=== PATIENT | female | born 1985 | race Caucasian/White ===

== ENCOUNTER → 2017-10-28 18:50 | Outpatient (REF) | payer OTHER, SELFPAY | LOC: LAB 18:50 | PROVIDERS: Visit Provider Family Medicine | DX: Z34.93 Encounter for supervision of normal pregnancy, unspecified, third trimester (principal) | CPT/HCPCS: 87081; 87147 ==

== ENCOUNTER 2017-11-03 06:57 | Observation (INO) | payer OTHER, SELFPAY ==
[2017-11-03] MEDS: TERBUTALINE 1 MG/ML VIAL 0.25 MG SUBCUT (07:44)
--- NOTE | 2017-11-03 08:17 | PM.PROC.1 ---
Procedures Date/Time Date of procedure: 11/03/17 Time of procedure: 07:44 General Procedure description: Patient arrived on Labor and delivery 1st baby at 37 weeks with breech presentation. NST was reactive. Ultrasound done confirmed infant with the head in the right upper quadrant back across the top of her uterus. There was adequate fluid. Anterior placenta. An IV was started. She was given terbutaline subcutaneously. Attempt x3 for 15 sec each time with monitoring heart rate in between was unsuccessful at moving the baby. NST was performed afterwards and was reactive. Patient denies any pain, bleeding. Complications: none
== END 2017-11-03 09:28 | disposition home or self-care (01) ==
PROVIDERS: Admitting Provider Family Medicine; PCP Family Medicine; Visit Provider Family Medicine
DX: O32.1XX0 Maternal care for breech presentation, not applicable or unspecified (principal); Z3A.37 37 weeks gestation of pregnancy
CPT/HCPCS: 59025; 59050; 59412; 76815; 96372; G0378; G0379

== ENCOUNTER 2017-11-17 05:36 | Inpatient (IN) | payer OTHER, SELFPAY ==
[2017-11-17] VITALS (7 sets, daily range): BP systolic 106–121; BP diastolic 74–81; PULSE 63–76; RESP 10–18; TEMP 36.1; O2SAT 96–100
--- NOTE | 2017-11-17 06:39 | PM.OBHP.1 ---
OB HPI Date/Time Date of admission: 11/17/17 Date Patient Seen: 11/17/17 Time Patient Seen: 06:39 History of Present Condition Chief complaint: [id number] : 1 Para: 0 Estimated Date of Delivery: 11/23/17 Estimated Gestational Age (weeks): 39 Narrative: EVELIA VELAZCO is a 32 year old female at 39 and 1 7 week intrauterine with breech presentation. Patient at 39 weeks had attempted version which failed. Brought in today for section. Patient had uncomplicated . Has been treated for reflux with Zantac but has done well. No other changes. Good movement. No leaking fluid. No contractions. Past medical history reflux History of elevated transaminases Past surgical history previous knee operations right x2. Social history. Lives with . Denies drug or alcohol use. Indications Indication for induction OB: other Operative indications ( section): breech presentation History of Present care: good care Dating criteria: LMP confirmed by 1st trimester US Ultrasounds: normal mid trimester US Obstetrical complications: none Narrative: Reflux Preadmission Labs Blood type: A (-) negative -: Antibody screen: negative, GBS status: negative, HBsAG: negative, HIV: negative, HSV 1: negative, HSV 2: negative and RPR/VDLR: negative -: Chlamydia screen: not detected and Gonorrhea screen: not detected -: Rubella: immune and Varicella: immune HCT: 13.4 HCAB: negative PAP: Normal Integrated screen: Normal Urine: Negative 1 hr GTT: 127 Prior (ies) History: None Evaluation Evaluation Category of Tracing: I Meds Allergies Allergy/AdvReac Type Severity Reaction Status Date / Time No Known Drug Allergies Allergy Verified 11/03/17 07:42 Review of Systems Review of Systems All systems reviewed & are unremarkable except as noted in HPI and below Exam Vital Signs (past 8 hours): Alert female smiling interactive in no acute distress. Lungs are clear. Heart regular rate and rhythm. Abdomen is gravid nontender. Confirmed breech with ultrasound. His extremities without cyanosis clubbing or edema. Normal neurologic exam Assessment and Plan Plan: Plan: Thirty-nine weeks gestational age intrauterine with breech presentation failed version. We have discussed options. Patient requesting section. Will do today. His rediscussed process and plan. Consent has already been discussed and approved. Signed. Follow-up in operating room
--- NOTE | 2017-11-17 06:50 | PM.PREOP ---
Pre-operative Note Interval Note Pre-op Check: Yes History & Physical exam performed today by Physician Changes: No H&P completed within 30 days and has changed as indicated here:: none
[2017-11-17 07:33] LABS: Add Manual Diff / Slide Review NO; Basophils Percent Auto 0.6 % (0-2); Eosinophils Percent Auto 0.5 % (2-4); Hematocrit 39.3 % (36-46); Hemoglobin 13.3 g/dL (12.0-16.0); Lymphocytes Percent Auto 25.6 % (25-40); Mean Corpuscular HGB Conc 33.9 % (30-36); Mean Corpuscular Hemoglobin 30.4 PG (26-34); Mean Corpuscular Volume 89.6 fL (80-100); Monocytes Percent Auto 5.9 % (3-14); Neutrophils Absolute Auto 7400 /uL (3000-5900); Neutrophils Percent Auto 67.4 % (50-75); Platelet Count 339 X10^3/uL (150-400); Red Blood Cell Count 4.38 X10^6/uL (4.0-5.2); Red Cell Distribution Width 13.6 % (11.6-14.8); White Blood Cell Count 10.9 X10^3/uL (4.5-11.0)
[2017-11-17] MEDS: CEFOTETAN 2 GM/50 ML PIGGYBACK IV (08:05)
--- NOTE | 2017-11-17 08:09 | SUR.OPER ---
Supine on Padded OR bed, head on pillow, safety belt at thigh, arms secured on padded arm boards at <90 degrees abduction. Bump under right buttock. Legs uncrossed with pillow under knees, gel pad to heels, tape over blanket to lower legs.
[2017-11-17] MEDS: LACTATED RINGERS 1,000 ML 42 ML IV ×2 (08:32→09:01)
--- NOTE | 2017-11-17 08:35 | SUR.OPER ---
FHT 140 AFTER SPINAL PLACED, VIABLE BABY GIRL BORN AT 0821
--- NOTE | 2017-11-17 09:08 | PM.OP.1 ---
Operative Date/Time/Diagnoses Date of procedure: 11/17/17 Time of procedure: 09:08 Pre-op diagnosis: Thirty-nine week intrauterine , failed version breech presentation Post-op diagnosis: same Procedure & Clinicians Procedure: primary low transverse section Same procedure as scheduled: Yes Indications: 39 week intrauterine with attempted version at 37 weeks which failed. Continued breech presentation Surgeon: Pj Corona Want Ad Receiver: Johanna Cool Click Yes if Unassisted: No Anesthesia Type: Spinal Operative Notes Findings: viable female infant Apgars 6 in 8. Weight not available. Breech presentation. Normal pelvic organs Closure Type: primary Specimen(s): none sent Implants & Drains: none Applied: catheter Estimated Blood Loss (mL): 400 Procedure in detail: patient was reviewed consent and her understand questions were answered she was taken the operative theater and scopes protocol was followed. Placed on the operative table in the wedge supine position after spinal was placed. Prepped and draped in the usual manner. Pfannenstiel incision was then and scribe in the usual location with sharp dissection down in the midline to fascia. Blunt dissection was then used to extend the subcutaneous and expose the fascia. Midline was then scored with scalpel and extended laterally with curved scissors. Molly is a used to grasp the superior aspect of the fascia and was bluntly dissected off the muscle layer. sharply dissected in the midline. This was repeated inferiorly without complications. Blunt dissection was then used to excise separate the muscle layer down to the peritoneum which was identified. Hemostats were used to isolate the peritoneum and blunt dissection was used to enter it was extended with blunt dissection bladder blade was placed bladder flap was then incised and developed without complications bladder blade was placed and the bladder flap. A low transverse incision was then made on the uterus until clear fluid was obtained this was extended bluntly the feet were then grasped and brought through the incision and then a towel was applied to the child's torso and delivered 1st the right arm than the left arm. Head was difficult to extract was unable to get hand into mouth briefly attempted to T incision but was unable to really extensively get good exposure and eventually head was delivered after mild difficulty. handed off to awaiting nurse and respiratory therapist minimal resuscitation was required. Cord gases were obtained and were excellent. Placenta was then manually extracted after cord bloods without complications. wet lap sponge was then used to swipe the uterine contents x2. Linda the uterine incision was then grasped with ring forceps along with the inferior aspect of the incision ring forceps were passed through the cervix and handed off the operative theater. Uterine incision was then closed with running 0 locked chromic. A 2nd imbricating stitch was then done with running 0 chromic. Irrigation was done to the uterine contents revaluated wound small area on the left side of bleeding [id number] suture was placed without complications and excellent results. Re-evaluated wound no bleeding noted 3 0 suture was then used to close the bladder flap and a running stitch fashion. Peritoneum was then closed with running 2 0 Vicryl. Fascia was then closed with running 1 Vicryl. Irrigation was done to the subcutaneous tissue. 330 interrupted Vicryl sutures were used to approximate the wound and close space H and subcutaneous tissue. Closed with running 4 0 Vicryl. All instruments sponge and needle counts were correct usual dressing applied. Four hundred EBL. Mother and infant in stable condition. Complications: none Condition: stable Disposition: Acute Care Plan for aftercare: Routine care postop to Labor and delivery
[2017-11-17] MEDS: KETOROLAC 30 MG/ML VIAL IV ×3 (09:13→21:35)
[2017-11-17] MEDS: DEXTROSE 5%-LACTATED RINGERS 1,000 ML 125 ML IV ×2 (10:15→18:02)
[2017-11-18] MEDS: KETOROLAC 30 MG/ML VIAL IV (06:17)
[2017-11-18] MEDS: OXYCODONE/ACETAMINOPHEN 5/325 TABLET 1 TAB PO ×2 (06:17→16:23)
[2017-11-18 06:36] LABS: Hematocrit 36.9 % (36-46); Hemoglobin 12.2 g/dL (12.0-16.0)
--- NOTE | 2017-11-18 08:57 | PM.OBPN.1 ---
Subjective - OB Interval history: Feeling well. Minimal pain. Minimal bleeding. No other changes. Up and moving. Gonzalez discontinued today. Patient comments: pain well controlled and incisional pain baby status: doing well feeding status: exclusively breast feeding Date Patient Seen: 11/18/17 Time Patient Seen: 08:58 Exam Vital Signs (past 8 hours): Oxygen Delivery Method Room Air Narrative Exam Narrative: Alert smiling female in no acute distress. Lungs are clear. Heart regular rate and rhythm. Abdomen is soft positive bowel sounds fundus is firm at umbilicus. Minimally tender. Incision is clean and dry. Extremities without cyanosis clubbing edema. Objective Labs Result Diagrams: 11/18/17 06:21 Labs: Laboratory Results - last 24 hr 11/18/17 06:21 Hgb 12.2 Hct 36.9 Assessment & Plan Plan day: 1 plan OB: routine postop care Comments: day 1 doing well no other significant changes or complaints. Routine care. Probable tomorrow. Routine post care discussed. Time Spent With Patient Total time spent is greater than 50% in coordination of care (as documented) at patient's floor/unit and/or counseling patient: less than 15 minutes
[2017-11-18] MEDS: DOCUSATE 250 MG CAPSULE PO (12:07)
[2017-11-18] MEDS: IBUPROFEN 600 MG TABLET PO ×2 (12:07→18:34)
[2017-11-19] MEDS: IBUPROFEN 600 MG TABLET PO ×2 (00:31→08:00)
[2017-11-19] MEDS: OXYCODONE/ACETAMINOPHEN 5/325 TABLET 2 TAB PO ×3 (05:04→12:56)
[2017-11-19] MEDS: DOCUSATE 250 MG CAPSULE PO (08:00)
--- NOTE | 2017-11-19 12:27 | PM.OBDS.1 ---
Discharge Providers Date of admission: 11/17/17 05:36 Primary care physician: Johanna Cool MD Consults: 11/17/17 09:54 Consult to Cork Pressing Machine Operator Routine Comment: Discharge provider: Johanna Cool MD Summary Date Patient Seen: 11/19/17 Time Patient Seen: 12:29 Hospital Course: Patient had a primary low transverse section for persistent breech presentation at term. Unremarkable . The There were no complications Patient is sent home with routine discharge instructions Discharge medications Colace, Percocet, Motrin, vitamins Follow-up with ia Wednesday Peripartum Data Delivery Method: Section Procedures: primary low transverse section complications: none Status at Discharge Cognitive/behavioral status at discharge: normal Functional status at discharge: independent ambulation Overall status at discharge: patient is progressing back to baseline Time Spent with Patient Total time spent providing and/or coordinating discharge services: 30 minutes Greater than 30 minutes Objective Labs Result Diagrams: 11/18/17 06:21 Discharge Plan Discharge Plan Patient Disposition: Home Discharge Med Rec/Prescriptions Prescriptions: New oxycodone-acetaminophen 5-325 mg Tablet 2 tab PO Q4HR PRN (Reason: Pain, Severe (7-10)) Qty: 40 RF: 0 ibuprofen 600 mg Tablet 600 mg PO Q6HR PRN (Reason: As Needed For Fever/Mild Pain) Qty: 60 RF: 0 docusate sodium 250 mg Capsule 250 mg PO DAILY Qty: 60 RF: 0 No Action No Known Home Medications RF: 0 Follow up/Referrals: Johanna Cool MD [Primary Care Provider] - 11/22/17 1:00 pm Provider Discharge Instructions Diet: Diet as Tolerated Activity: Pelvic rest, no heavy lifting Skin/Wound/Dressing Care Report to your healthcare provider any signs of infection, such as:: chills, fever, night sweats, increased pain and unusual drainage Visit Report/Discharge Packet Stand Alone Forms: Discharge: Care Visit Report Forms: Stroke Signs & Symptoms Discharge Data Primary Care Provider: Johanna Cool Attending Provider: Pj Corona Admit Date/Time: 11/17/17 05:36
[2017-11-19 12:29] VITALS: BP 121/77; PULSE 70; RESP 12; TEMP 36.1
== END 2017-11-19 13:30 | disposition home or self-care (01) | DRG 766 ==
PROVIDERS: Admitting Provider Family Medicine; Family Provider Family Medicine; PCP Family Medicine; Visit Provider Family Medicine
PROC: 10D00Z1 Extraction of Products of Conception, Low, Open Approach (ICD-10-PCS; CPT 59514; principal; 2017-11-17 07:45)
DX: O32.1XX0 Maternal care for breech presentation, not applicable or unspecified (principal); Z3A.39 39 weeks gestation of pregnancy; Z37.0 Single live birth
CPT/HCPCS: 36415; 59050; 85014; 85018; 85025; 86850; 86900; 86901; J1885; J2274; J2405; J2590; J3010; J7121

== ENCOUNTER → 2018-10-31 09:37 | Outpatient (CLI) | payer OTHER, SELFPAY ==
--- NOTE | 2018-10-31 | DI.US.S_ITS ---
PROCEDURE: US OB <= 14 WEEKS FETUS INDICATIONS: INITIAL SIZING AND DATING OUTSIDE/PRIOR DATING DATA: Last menstrual period (LMP): 09/27/18. LMP-based estimated date of delivery (DEANGELO): 06/12/19. First dating scan (date and location): 10/31/18. Estimated date of delivery (DEANGELO) from first dating scan: 06/20/19. TECHNIQUE: Real-time scanning was performed of the fetus and maternal pelvic organs, with image documentation. Endovaginal scanning was also performed to better visualize the fetus and maternal ovaries. COMPARISON: None. FINDINGS: Embryo: [place]-rump length measures 9 mm corresponding to 6 weeks 6 days. Heart rate measures 135 beats per minute. Measurement variability in dating: +/- 4 weeks by LMP, +/- 7 days by mean sac diameter (use before 6 weeks gestation if crown-rump length not able to be measured), +/- 5 days by crown-rump length (up to 8 weeks 6 days gestation), +/- 7 days by crown-rump length (up to 13 weeks 6 days gestation). Maternal organs: Right ovaries not visualized. Normal left ovary. No adnexal masses. IMPRESSION: 6 week 6 day single living IUP. Dictated by: Scooby Hughes RRA Interpreted: Esmer Martin MD on 10/31/2018 at 14:06 Approved by: Esmer Martin MD, PhD on 10/31/2018 at 15:16
== END ==
PROVIDERS: PCP Family Medicine; Visit Provider Family Medicine
DX: Z34.91 Encounter for supervision of normal pregnancy, unspecified, first trimester (principal); Z3A.01 Less than 8 weeks gestation of pregnancy
CPT/HCPCS: 76801; 76817

== ENCOUNTER → 2019-05-15 10:41 | Outpatient (CLI) | payer OTHER, SELFPAY ==
--- NOTE | 2019-05-15 | DI.US.S_ITS ---
PROCEDURE: US OB LIMITED INDICATIONS: LLQ PAIN OUTSIDE/PRIOR DATING DATA: Last menstrual period (LMP): 09/27/18. LMP-based estimated date of delivery (DEANGELO): 06/12/19. First dating scan (date and location): 10/31/18. Estimated date of delivery (DEANGELO) from first dating scan: 06/20/19.. TECHNIQUE: Real-time scanning was performed of the fetus, with image documentation. Endovaginal scanning: No COMPARISON: [facility], OB <= 14 WEEKS FETUS, 10/31/2018, 10:19. FINDINGS: A single living intrauterine gestation is present. Presentation: Vertex Placenta: Placental position is anterior, without previa. Amniotic fluid index: 22.9 cm, normal range is 5-24 cm. heart rate: 133 beats per minute. Maternal cervical canal: Not well-seen Estimated gestational age from initial scan: 34 weeks 6 days. IMPRESSION: 1. Single living IUP redemonstrated and no source for left lower quadrant pain identified. Of note, the left ovary is not visualized. Dictated by: Scooby Hughes [facility] Interpreted: Hanane Nicolas MD on 05/15/2019 at 12:49 Approved by: Hanane Nicolas M.D. on 05/15/2019 at 14:16
== END ==
PROVIDERS: PCP Family Medicine; Referring Provider Family Medicine; Visit Provider Family Medicine
DX: O99.89 Other specified diseases and conditions complicating pregnancy, childbirth and the puerperium (principal); R10.32 Left lower quadrant pain; Z3A.34 34 weeks gestation of pregnancy
CPT/HCPCS: 76815

== ENCOUNTER 2019-05-17 13:22 | Outpatient (CLI) | payer OTHER, SELFPAY | END 2019-05-17 14:57 | disposition home or self-care (01) | LOC: LABOR 14:57 → OB 05-18 09:00 | PROVIDERS: PCP Family Medicine; Referring Provider Family Medicine; Visit Provider Family Medicine | DX: Z34.83 Encounter for supervision of other normal pregnancy, third trimester (principal); Z3A.35 35 weeks gestation of pregnancy | CPT/HCPCS: 59025; G0378; G0379 ==

== ENCOUNTER → 2019-05-31 12:17 | Outpatient (ROUT) | payer OTHER, SELFPAY | PROVIDERS: PCP Family Medicine; Visit Provider Family Medicine | DX: Z34.90 Encounter for supervision of normal pregnancy, unspecified, unspecified trimester (principal) | CPT/HCPCS: 87081 ==

== ENCOUNTER 2019-06-14 08:34 | Inpatient (IN) | payer OTHER, SELFPAY ==
[2019-06-14 09:45] LABS: Add Manual Diff / Slide Review NO; Basophils Absolute Auto 0 /uL (0-100); Basophils Percent Auto 0.4 % (0-2); Eosinophils Absolute Auto 100 /uL (0-450); Eosinophils Percent Auto 0.4 % (2-4); Hematocrit 37.8 % (36-46); Hemoglobin 12.7 g/dL (12.0-16.0); Lymphocytes Absolute Auto 2600 /uL (1100-4500); Mean Corpuscular HGB Conc 33.6 % (30-36); Mean Corpuscular Hemoglobin 29.5 PG (26-34); Mean Corpuscular Volume 88.1 fL (80-100); Monocytes Absolute Auto 600 /uL (0-900); Monocytes Percent Auto 4.8 % (3-14); Neutrophils Absolute Auto 9100 /uL (1500-7000); Neutrophils Percent Auto 73.4 % (50-75); Platelet Count 331 X10^3/uL (150-400); Red Blood Cell Count 4.29 X10^6/uL (4.0-5.2); Red Cell Distribution Width 13.8 % (11.6-14.8); White Blood Cell Count 12.3 X10^3/uL (4.5-11.0)
--- NOTE | 2019-06-14 09:51 | P.HPOB_ITS ---
OB HPI Date/Time Date of admission: 06/14/19 Date Patient Seen: 06/14/19 Time Patient Seen: 09:51 History of Present Condition Chief complaint: [id number] : 2 Para: 1 Estimated Date of Delivery: 06/20/19 Estimated Gestational Age (weeks): 391/7 Narrative: Dolly Karimi is a 33 year old female 39 and 1/7 week gestational age here for repeat section. Really no complications during . Otherwise healthy with no major issues. No complaints. No contractions. No leaking fluids. Otherwise feeling well. Indications Operative indications ( section): previous uterine surgery History of Present care: good care Dating criteria: LMP confirmed by 1st trimester US Ultrasounds: normal mid trimester US Obstetrical complications: none Medical complications: none Preadmission Labs Blood type: A (-) negative -: Antibody screen: negative, Cystic fibrosis screen: unknown, GBS status: negative, HBsAG: negative, HIV: negative, HSV 1: negative, HSV 2: negative and RPR/VDLR: negative -: Chlamydia screen: not detected and Gonorrhea screen: not detected -: Rubella: immune and Varicella: unknown HCAB: negative PAP: Normal Quad screen: Normal 1 hr GTT: 111 Prior (ies) History: 11/17/17 39 week spinal 7 lb 6 oz male Evaluation Evaluation Laboratory results: Laboratory Tests 06/14/19 09:00 WBC 12.3 H RBC 4.29 Hgb 12.7 Hct 37.8 MCV 88.1 MCH 29.5 MCHC 33.6 RDW 13.8 Plt Count 331 Neut % (Auto) 73.4 Lymph % (Auto) 21.0 L [place] % (Auto) 4.8 Eos % (Auto) 0.4 L Baso % (Auto) 0.4 Neut # (Auto) 9100 H Lymph # (Auto) 2600 [place] # (Auto) 600 Eos # (Auto) 100 Baso # (Auto) 0 PFSH Social History Smoking Status: Never smoker Meds Home Medications and Allergies Home Medications Medication Instructions Recorded Confirmed Type No Known Home Medications 11/17/17 11/17/17 History docusate sodium 250 mg PO DAILY #60 cap 11/19/17 Rx ibuprofen 600 mg PO Q6HR PRN #60 tab 11/19/17 Rx oxycodone-acetaminophen 2 tab PO Q4HR PRN #40 tab 11/19/17 Rx Allergies Allergy/AdvReac Type Severity Reaction Status Date / Time No Known Drug Allergies Allergy Verified 11/03/17 07:42 Review of Systems Review of Systems ROS: Yes All systems reviewed with the patient and are negative except as otherwise documented Exam Vital Signs (past 8 hours): Alert female lying in bed no acute distress. Lungs are clear. Heart regular rate and rhythm. She is gravid breech with spine lying along the left side. Head upper right quadrant. Nontender. Extremities unremarkable Objective Labs Result Diagrams: 06/14/19 09:00 Labs: Laboratory Results - last 24 hr 06/14/19 09:00 WBC 12.3 H RBC 4.29 Hgb 12.7 Hct 37.8 MCV 88.1 MCH 29.5 MCHC 33.6 RDW 13.8 Plt Count 331 Neut % (Auto) 73.4 Lymph % (Auto) 21.0 L [place] % (Auto) 4.8 Eos % (Auto) 0.4 L Baso % (Auto) 0.4 Neut # (Auto) 9100 H Lymph # (Auto) 2600 [place] # (Auto) 600 Eos # (Auto) 100 Baso # (Auto) 0 Assessment and Plan Assessment and Plan Assessment and Plan narrative: 39+ week intrauterine with breech presentation otherwise doing well. Here for . Consents been signed discussion with mom and dad. Questions answered. Will proceed.
[2019-06-14] MEDS: CEFOTETAN 2 GM/50 ML PIGGYBACK IV (10:40)
[2019-06-14] MEDS: ACETAMINOPHEN IV 1,000 MG/100 ML VIAL 400 MG IV (10:45)
[2019-06-14] MEDS: LACTATED RINGERS 1,000 ML 42 ML IV (10:57)
--- NOTE | 2019-06-14 11:15 | SUR.OPER ---
VIABLE MALE INFANT DELIVERED AT 1105. PLACENTA AND CORD BLOOD TO OB WITH RN.
--- NOTE | 2019-06-14 12:08 | P.OP_ITS ---
Operative Date/Time/Diagnoses Date of procedure: 06/14/19 Time of procedure: 12:08 Pre-op diagnosis: Term uterine History of previous section Post-op diagnosis: same Procedure & Clinicians Procedure: Secondary low-transverse section Same procedure as scheduled: Yes Surgeon: Pj Corona Inspector Wire Products: Johanna Cool Click Yes if Unassisted: No Anesthesia Type: Spinal Operative Notes Findings: Breech presentation. Normal male Apgars 9 and 9. Normal pelvic organs. Due to breech T incision was done on uterus Closure Type: primary Specimen(s): none sent Applied: catheter Estimated Blood Loss (mL): 500 Blood products transfused: none Procedure in detail: Patient was met in the labor and delivery and questions were answered. Says consented been previously signed and she understands. Questions were answered again. Her were comfortable. Was brought to the operating theatre and sat on the operating table and Dr. Mcmanus anesthesiologists placed spinal without complications excellent results. She was placed in the wedged supine position and catheter was placed ICDs were placed SOAPes procedure was followed. Prepped and draped in the usual manner. Pfannenstiel incision was then undertaken under sharp dissection with moderate amount of scar tissue down to the fascia. Fascia was then scored in the midline and extended laterally with curved scissors. Levon was then used to elevate the fascia it was bluntly dissected except in the midline were sharp dissection was used. This was repeated inferiorly without complications. Moderate amount of [place] to shins in the midline with her noted and under direct visualization using curved scissors slowly taken down until midline was identified. And peritoneum was identified. Once a small area was cleared 1 dissection was then used to extend the incision. There was small amount of scar tissue inferiorly which was taken down without complications. Bladder flap was then incised and bladder blade was placed in the bladder flap. A low transverse incision was then made on the uterus until clear fluid was noted and this was extended laterally. Child was then delivered breech with no complications until head was obtained at this point we are having difficulty getting head removed and a T incision was done with bandage scissors. This allowed adequate room and child was delivered. No resuscitation was required. Cord was clamped and sent to awaiting nurse. Cord bloods were obtained. Placenta was then delivered without complications. Wet lap sponge was then used to swipe the uterine contents for products of conception. None were found. This was repeated. Ring forceps were used then to grass the corners incision in the inferior aspect and bladder blade was placed. The T part of the incision was then closed from the apex to the incision with double layer of 0 chromic. Came together nicely. No bleeding. We then closed the uterine incision with locked 0 chromic running. This was repeated with an imbricating suture. Nose bleeding was noted there was a small amount of bleeding on the apex of the T incision and a [id number] was placed. Then that part of the incision was then imbricated. No bleeding was noted. We then irrigated the abdominal contents with saline and removed it. Re-evaluated incision was found to be dry. Bladder flap was then closed all except the left corner which was difficult to find due to tearing period and previous scarring. Peritoneum was then closed with running 2 0 Vicryl. Muscle layer was then approximated with 2 3-0 interrupted Vicryl sutures. Fascia was then closed with running 1 Vicryl. Irrigation was done to the subcutaneous tissue and removed. No bleeding was noted. 330 Vicryl interrupted sutures were used to approximate the wound skin was closed with running 4-0 Vicryl subcutaneous 5th. EBL was 500 cc. Mother and infant were in stable condition. Transferred to recovery period Complications: none Post-operative Condition: stable Plan for aftercare: To labor and delivery unusual care
[2019-06-14 12:12] VITALS: BP 123/76; PULSE 82; RESP 11; TEMP 36.2; O2SAT 99
[2019-06-14 12:17] VITALS: BP 94/66; PULSE 91; RESP 18; O2SAT 100
[2019-06-14 12:22] VITALS: BP 109/55; PULSE 76; RESP 13; O2SAT 99
[2019-06-14] MEDS: KETOROLAC 30 MG/ML VIAL IV ×2 (12:24→18:25)
--- NOTE | 2019-06-14 12:30 | SUR.PHASEI ---
Report called to Miguelina.
--- NOTE | 2019-06-14 12:57 | SUR.PHASEI ---
Patient transferred to the center. Report given to Miguelina. VS stable. Dressing, pad and fundus checked with RN. IV saline locked.
--- NOTE | 2019-06-14 13:00 | SUR.PHASEI ---
Addendum: viktor chavarria.
[2019-06-14] MEDS: LACTATED RINGERS 1,000 ML 125 ML IV ×2 (13:29→21:01)
[2019-06-14 14:13] VITALS: BP 110/71
[2019-06-15] MEDS: KETOROLAC 30 MG/ML VIAL IV ×2 (00:18→06:14)
[2019-06-15] MEDS: DOCUSATE 250 MG CAPSULE PO (08:29)
[2019-06-15] MEDS: ACETAMINOPHEN 325 MG TABLET 650 MG PO ×3 (08:58→21:10)
[2019-06-15] MEDS: IBUPROFEN 600 MG TABLET PO ×2 (13:14→19:59)
--- NOTE | 2019-06-15 13:33 | PM.OBPN.1 ---
Subjective - OB Subjective Patient comments: incisional pain baby status: doing well feeding status: exclusively breast feeding Date Patient Seen: 06/15/19 Time Patient Seen: 13:34 Interval history: Patient doing well today. Does not want to use narcotics. Taking Tylenol ibuprofen. Toradol finished last dose already. Minimal lochia. No nausea or vomiting. Tolerating food well. Passing gas. Exam Vital Signs (past 8 hours): Oxygen Delivery Method Room Air Narrative Exam Narrative: Alert smiling female no acute distress. Lungs are clear. Heart regular rate and rhythm. Abdomen is mildly distended. Normal bowel sounds. Uterus is firm. Incision is clean and dry. Extremities no edema nontender Objective Labs Result Diagrams: 06/14/19 09:00 Assessment & Plan Plan Comments: Overall doing extremely well. No change in treatment course. Probable home tomorrow. Time Spent With Patient Time: Total time spent is greater than 50% in coordination of care (as documented) at patient's floor/unit and/or counseling patient: Time with patient: 15-24 minutes
[2019-06-15] MEDS: RHO(D) IMMUNE GLOBULIN 1,500 UNIT SYRINGE 1500 UNIT IM (20:00)
[2019-06-16] MEDS: IBUPROFEN 600 MG TABLET PO ×2 (02:06→08:12)
[2019-06-16] MEDS: ACETAMINOPHEN 325 MG TABLET 650 MG PO (02:55)
[2019-06-16] MEDS: DOCUSATE 250 MG CAPSULE PO (08:12)
--- NOTE | 2019-06-16 08:36 | P.DS_ITS ---
Discharge Providers Provider Date of admission: 06/14/19 08:34 Discharge Date: 06/16/19 Primary care physician: Johanna Cool MD Consults: 06/14/19 12:57 Consult to Licensed Physical Therapist Routine Comment: Discharge provider: Johanna Cool MD Summary Time Spent with Patient Time attestation: Total time spent providing and/or coordinating discharge services: Objective Labs Result Diagrams: 06/14/19 09:00 Exam Vital Signs (past 8 hours): Oxygen Delivery Method Room Air Narrative Exam Narrative: Afebrile vital signs are stable HEENT unremarkable Neck: Supple Chest: Clear to auscultation Cor: Regular rate and rhythm without murmur Abdomen: Uterus is firm and nontender and well below the umbilicus. Incision is clean and dry Extremities: No edema, pulses intact Discharge Plan Discharge Plan Patient Disposition: Home Discharge orders & Medications Prescriptions: Continued ibuprofen 600 mg Tablet 600 mg PO Q6HR PRN (Reason: As Needed For Fever/Mild Pain) Qty: 60 RF: 0 Discontinued oxycodone-acetaminophen 5-325 mg Tablet 2 tab PO Q4HR PRN (Reason: Pain, Severe (7-10)) Qty: 40 RF: 0 docusate sodium 250 mg Capsule 250 mg PO DAILY Qty: 60 RF: 0 Follow up/Referrals: Johanna Cool MD [Primary Care Provider] - Diet/Activity/Treatments Diet: Diet as Tolerated Activity: Pelvic rest No heavy lifting Skin/Wound/Dressing Care Skin care: Routine incision instructions given Discharge Data Primary Care Provider: Johanna Cool
[2019-06-16 08:44] LABS: Add Manual Diff / Slide Review NO; Basophils Absolute Auto 100 /uL (0-100); Basophils Percent Auto 0.7 % (0-2); Eosinophils Absolute Auto 300 /uL (0-450); Eosinophils Percent Auto 2.4 % (2-4); Hematocrit 33.7 % (36-46); Hemoglobin 11.3 g/dL (12.0-16.0); Lymphocytes Absolute Auto 2400 /uL (1100-4500); Lymphocytes Percent Auto 17.4 % (25-40); Mean Corpuscular HGB Conc 33.6 % (30-36); Mean Corpuscular Hemoglobin 29.9 PG (26-34); Mean Corpuscular Volume 88.8 fL (80-100); Monocytes Absolute Auto 600 /uL (0-900); Monocytes Percent Auto 4.3 % (3-14); Neutrophils Absolute Auto 10200 /uL (1500-7000); Neutrophils Percent Auto 75.2 % (50-75); Platelet Count 322 X10^3/uL (150-400); Red Cell Distribution Width 14.3 % (11.6-14.8); White Blood Cell Count 13.6 X10^3/uL (4.5-11.0)
== END 2019-06-16 10:15 | disposition home or self-care (01) | DRG 788 ==
PROVIDERS: Admitting Provider Family Medicine; PCP Family Medicine; Referring Provider Family Medicine; Visit Provider Family Medicine
PROC: 10D00Z1 Extraction of Products of Conception, Low, Open Approach (ICD-10-PCS; CPT 59514; principal; 2019-06-14 10:00)
DX: O34.219 Maternal care for unspecified type scar from previous cesarean delivery (principal); Z3A.39 39 weeks gestation of pregnancy; Z37.0 Single live birth
CPT/HCPCS: 36415; 59050; 85025; 85461; 86850; 86900; 86901; J0131; J1885; J2274; J2590; J2790

== ENCOUNTER → 2019-10-19 10:38 | Outpatient (CLI) | payer OTHER, SELFPAY ==
--- NOTE | 2019-10-19 | DI.US.S_ITS ---
PROCEDURE: US ABDOMEN COMPLETE INDICATIONS: RIGHT UPPER QUADRANT PAIN TECHNIQUE: Real-time scanning was performed of the abdominal and retroperitoneal organs, with image documentation. COMPARISON: None. FINDINGS: Liver: The liver demonstrates normal size. The liver demonstrates generalized increased echogenicity. This decreases ultrasound sensitivity for detection of hepatic masses. Gallbladder: Mobile, shadowing gallstones are seen. The gallbladder wall is not thickened, measuring 3 mm or less. No specific pericholecystic fluid is seen. The sonographic Combs sign is negative. Biliary ducts: Intrahepatic bile ducts are non-dilated. Extrahepatic bile duct caliber measures 4 mm. Normal is 6-7 mm or less in diameter, or 10 mm or less post-cholecystectomy. Pancreas: Visualized portions of the pancreas are sonographically normal. Spleen: Spleen is normal in size and homogeneous in echotexture. Kidneys: Kidneys are normal in size and echotexture. Right kidney measures 11.3 cm long; left kidney measures 10.3 cm long. No hydronephrosis or nephrolithiasis. No solid masses. Aorta: Visualized aorta is normal in caliber at less than 3 cm. Iliacs: Proximal common iliac arteries are normal in caliber at less than 2.5 cm. IVC: Intrahepatic inferior vena cava is patent. Miscellaneous: No free abdominal fluid. IMPRESSION: Mobile gallstones are seen, yet without additional sonographic signs of cholecystitis. Negative for biliary dilatation. Please correlate with physical examination findings, patient presentation, and laboratory values. The liver demonstrates increased echogenicity. This finding is nonspecific, yet it is most commonly attributed to fatty infiltration. Dictated by: Lukasz Vazquez M.D. on 10/19/2019 at 10:43 Approved by: Lukasz Vazquez M.D. on 10/19/2019 at 10:44
== END ==
PROVIDERS: PCP Family Medicine; Referring Provider Family Medicine; Visit Provider Family Medicine
DX: R10.11 Right upper quadrant pain (principal); K80.20 Calculus of gallbladder without cholecystitis without obstruction
CPT/HCPCS: 76700

== ENCOUNTER → 2019-11-26 11:17 | Outpatient (CLI) | payer OTHER, SELFPAY ==
[2019-11-27 13:56] LABS: COVID19 Sendout Not Detected (Not Detect)
== END ==
PROVIDERS: PCP Family Medicine; Visit Provider Nurse Practitioner
DX: Z11.59 Encounter for screening for other viral diseases (principal)
CPT/HCPCS: 87635

== ENCOUNTER 2019-11-29 11:15 | Day surgery (SDC) | payer OTHER, SELFPAY ==
[2019-11-23 15:01] VITALS: BMI 34.9
[2019-11-29] VITALS (11 sets, daily range): BP systolic 108–134; BP diastolic 61–82; PULSE 64–94; RESP 13–23; TEMP 36.3–36.5; O2SAT 93–99; BMI 34.9
--- NOTE | 2019-11-29 | PATH_ITS ---
[facility] Accession Number: [id number] . 01 Material submitted: . gallbladder - GALLBLADDER AND CONTENTS . 02 Diagnosis: Gallbladder and Contents, Cholecystectomy: Chronic cholecystitis, cholesterolosis, and cholelithiasis. MRV 12/01/2019 1001 Local . 02 Electronically signed: . Erica Garcia MD, Pathologist NPI- [id number] . 01 Gross description: . Received in formalin, labeled gallbladder, and consists of an 8.0 x 2.0 x 2.0 cm intact gallbladder with a 0.2 cm in diameter cystic duct. The serosa is pink-purple and smooth. Opening reveals green viscous bile and multiple agudelo-green bosselated choleliths ranging from 0.1 to 0.3 cm and measuring 1.0 x 1.0 x 0.3 cm in aggregate. The mucosa is agudelo-green and velvety and the wall thickness measures up to 0.2 cm. Bleacher Operator sections are submitted to include the en face cystic duct margin (green), body and fundus in cassette A1. (EA:[id number]) /MRV 11/30/2019 1453 Local . 02 Pathologist provided ICD-10: K80.20, K80.60 . 02 CPT . 783856 Performed at: 01 [facility] [address], [place], [place] [id number] MD Jerardo Loco MD Phone: [phone] Performed at: 02 [facility] [address] [place], [place] [id number] MD Shahnaz Davis MD Phone: [phone]
[2019-11-29] MEDS: LACTATED RINGERS 1,000 ML 100 ML IV (11:34)
[2019-11-29] MEDS: Non-Formulary Medication (Indocyanine 25 MG) 25 EACH IV (12:08)
--- NOTE | 2019-11-29 12:08 | PM.PREOP ---
Pre-operative Note COVID-19 COVID-19 status: Negative Result date/Date tested (Pos, Neg/Pending): 11/26/19 Interval Note History & Physical reviewed/Exam performed by Physician: Yes Changes to H&P: No
[2019-11-29] MEDS: PIPERACILLIN-TAZO 3.375 GM/50 ML FROZ.PIGGY IV (12:15)
--- NOTE | 2019-11-29 12:56 | SUR.OPER ---
Supine on padded OR bed, head on pillow, arms secured on padded arm boards at <90 degrees abduction, legs uncrossed, safety belt at thigh, tape over blanket over lower legs.
[2019-11-29] MEDS: BUPIVACAINE 0.25% W/ EPI 30 ML VIAL INJ (13:41)
--- NOTE | 2019-11-29 14:00 | PM.OP.1 ---
Operative Date/Time/Diagnoses Date of procedure: 11/29/19 Time of procedure: 14:00 Pre-op diagnosis: Symptomatic cholelithiasis Post-op diagnosis: other (symptomatic cholelithiasis chronic cholecystitis) Procedure & Clinicians Procedure: Laparoscopic cholecystectomy with indocyanine green cholangiography Same procedure as scheduled: Yes Indications: Symptomatic cholelithiasis Surgeon: Molly Merida Click Yes if Unassisted: Yes Anesthesia Type: General Operative Notes Findings: Gallbladder was thickened and deeply intrahepatic, with small stones in the infundibulum, heavy liver which made retraction of the gallbladder difficult, indocyanine green was helpful for indicating cystic duct position and common duct Specimen(s): other (Gallbladder) Estimated Blood Loss (mL): 1 Blood products transfused: none Procedure in detail: The patient was brought into the operating room and placed supine on the OR table. Sequential compression devices were placed on both legs and turned on. Appropriate perioperative antibiotics were given prior to the start of surgery. General anesthesia was induced the patient was intubated. The abdomen was prepped and draped in sterile fashion. Surgical time-out was conducted. Local anesthetic was injected under the skin just superior to the umbilicus and a 5 mm vertical incision was made at this site. The umbilical stalk was grasped with a Levon and elevated. A Veress needle was passed through the fascia into proper position. The position was tested with a saline drop test which was appropriate for intra-abdominal Veress needle placement. The abdomen was then insufflated in the usual fashion. Once insufflated to 15 mm Hg the Veress needle was removed and a 5 mm optical trocar was placed under direct vision using a 5 mm 30 degree scope. Once the camera was inside the abdomen I took a look around. There was no injury from port placement. Two additional ports were placed in a similar fashion in the right upper quadrant and a 10 mm port was placed in the epigastrium. Through the 2 lateral ports the gallbladder was grasped and elevated and the infundibulum was retracted laterally to the patient's right. The gall bladder was deeply intrahepatic and the liver was very heavy. The falciform did not provide any upward lift on the liver. This made positioning the gall bladder for safe dissection difficult. There was a moderate amount of dense scar tissue throughout the gallbladder hilum. This required tedious careful dissection to avoid injury to the bile ducts. Indocyanine green cholangiography was used to identify the cytic duct and common duct, and to help guide dissection, avoiding injury to either duct. As the fibrous scar tissue was dissected out, we were gradually able to get a better view of the hilum for dissection of the critical view of safety. Once the cystic duct and artery were completely dissected out, I was able to see liver behind and between both structures without any other structures in the way, giving us the critical view. At this point I doubly clipped both structures on the patient's side and put a single clip on the gallbladder side of both the cystic duct and artery. Both structures were then divided with laparoscopic Herbert. Following this the gallbladder was gradually dissected free from the liver. The deeply intrahepatic position of the gall bladder made this a more difficult and prolonged dissection. Once the gallbladder was entirely freed, it was placed inside an Endo-Catch bag and removed through the epigastric port site. I did not have to enlarge the epigastric site in order to get the gallbladder out. Once it was out and passed off to the back table I then took another look inside the abdomen. I suctioned clean any remaining blood or fluid on the lateral side of the liver and in the subhepatic space. There was no active bleeding or leaking of bile from the gallbladder fossa or from the clipped stumps of the cystic duct and artery. At this point the insufflation was removed from the abdomen and the epigastric port site was closed with 0 Vicryl suture in the fascia, 3 O Vicryl in the subcutaneous layers, and 4 Monocryl in the skin. The remaining port sites were closed with 4 Monocryl in the skin. Each port site was sealed with Dermabond. Local anesthetic was given at each of the port sites and in the fascia. This concluded the procedure. At this point the needle sponge and instrument counts were correct. The gallbladder was passed off the table for pathology. Patient was awakened from anesthesia and extubated. She was transferred to the postanesthesia care unit in stable condition. Complications: none Post-operative Condition: stable Disposition: PACU
[2019-11-29] MEDS: fentaNYL 100 MCG/2 ML INJ IV ×2 (14:16→14:40)
[2019-11-29] MEDS: HYDROCODONE/ACET 5/325 TABLET 1 TAB PO ×2 (14:22→15:14)
--- NOTE | 2019-11-29 15:38 | SUR.PHASEII ---
Pt dcd in stable condition to curbside where waiting in his car. No c/o and pt states verbalizes understanding of all dc instructions and will p/u rxs
== END 2019-11-29 15:38 | disposition home or self-care (01) ==
PROVIDERS: PCP Family Medicine; Referring Provider Surgery; Visit Provider Surgery
PROC: 0FT44ZZ Resection of Gallbladder, Percutaneous Endoscopic Approach (ICD-10-PCS; CPT 47562; principal; 2019-11-29 12:45)
DX: K80.10 Calculus of gallbladder with chronic cholecystitis without obstruction (principal); E66.9 Obesity, unspecified; Z68.35 Body mass index [BMI] 35.0-35.9, adult
CPT/HCPCS: 47563; J1100; J1885; J2250; J2405; J2543; J2704; J3010

== ENCOUNTER → 2020-10-23 16:09 | Outpatient (CLI) | payer OTHER, SELFPAY ==
--- NOTE | 2020-10-23 16:13 | DI.US.S_ITS ---
PROCEDURE: US OB <= 14 WEEKS FETUS INDICATIONS: LOW HEART RATE OUTSIDE/PRIOR DATING DATA: Last menstrual period (LMP): Unknown. IVF-based estimated date of delivery (DEANGELO): 05/11/2021. First dating scan (date and location): 10/23/2020. Estimated date of delivery (DEANGELO) from first dating scan: 05/08/2020. TECHNIQUE: Real-time scanning was performed of the fetus and maternal pelvic organs, with image documentation. Endovaginal scanning was also performed to better visualize the fetus and maternal ovaries. COMPARISON: [facility], , OB <= 14 WEEKS FETUS, 10/31/2018, 10:19. FINDINGS: Embryo: Single live intrauterine is identified with crown-rump length measuring 5.2 cm corresponding to 11 weeks 6 days. No visualized subchorionic hemorrhage. Cervix measures 3.9 cm. Heart rate: 153 beats per minute. Maternal organs: Ovaries are unremarkable . IMPRESSION: 1. Single live intrauterine as above with ultrasound gestational age of 11 weeks 6 days. 2. It is noted IVF DEANGELO of 05/11/2021. Dictated by: Hanane Nicolas M.D. on 10/24/2020 at 8:33 Approved by: Hanane Nicolas M.D. on 10/24/2020 at 8:36
== END ==
PROVIDERS: PCP Family Medicine; Referring Provider Family Medicine; Visit Provider Family Medicine
DX: O36.8310 Maternal care for abnormalities of the fetal heart rate or rhythm, first trimester, not applicable or unspecified (principal); Z3A.11 11 weeks gestation of pregnancy
CPT/HCPCS: 76801; 76817

== ENCOUNTER → 2020-12-25 09:14 | Outpatient (CLI) | payer OTHER, SELFPAY ==
--- NOTE | 2020-12-25 | DI.US.S_ITS ---
PROCEDURE: US OB >= 14 WEEKS FETUS INDICATIONS: 20 WEEK ANATOMY SCAN OUTSIDE/PRIOR DATING DATA: Last menstrual period (LMP): unknown LMP-based estimated date of delivery (DEANGELO): 05/11/21 First dating scan (date and location): 10/23/20 . Estimated date of delivery (DEANGELO) from first dating scan: 05/08/21 . TECHNIQUE: Real-time scanning was performed of the fetus, with image documentation and biometric measurements. COMPARISON: [facility], OB <= 14 WEEKS FETUS, 10/23/2020, 15:57. FINDINGS: General: A single living intrauterine gestation is present. Presentation: Breech. Placenta: Placental position is anterior, without previa. Amniotic fluid index: 15.3 cm, normal range is 5-24 cm. heart rate: 149 beats per minute. Maternal cervical canal: 3.9 cm long. Normal lower limit is 2.5 cm. biometrics: Biparietal diameter: 4.9 cm 20 weeks 6 days Head circumference: 18.6 cm 21 weeks 0 days Abdominal circumference: 16 cm 21 weeks 1 day Femur length: 3.2 cm 19 weeks 6 days Estimated gestational age from initial scan: 20 weeks 6 days Composite gestational age from present scan: 20 weeks 5 days Estimated weight and percentile: 367g 33rd percentile Measurement variability for biometric dating: +/- 7 days from 14 weeks to 15 weeks 6 days gestation, +/- 10 days from 16 weeks to 21 weeks 6 days gestation, +/- 2 weeks from 22 weeks to 27 weeks 6 days gestation, +/- 3 weeks for 28 weeks gestation or later. weight reference: 4500 g or EFW >90/95% is considered macrosomia or large for gestational age. EFW <10% is small for gestational age. EFW 5% or less is considered intra-uterine growth restriction. Anatomic survey: Neuro: Not well seen. Nuchal skin fold: Normal at less than 6 mm between 14-21 weeks gestational age. Face: Nose and lips, facial profile are not well seen. Spine: Not well seen. Heart: 4-chambered heart and ventricular outflow tracts are not well seen. Diaphragm: Diaphragm is not well seen. Stomach: Left-sided stomach is unremarkable. Kidneys: Right kidney is not well seen. Left kidney is unremarkable. Cord: 3-vessel cord is not well seen. Bladder: Normal in size. Extremities: Right upper and left lower limbs are not well seen. Other limbs are not well seen. IMPRESSION: 1. Single live intrauterine as above. 2. Very limited anatomy. Recommend short interval followup. Dictated by: Hanane Nicolas M.D. on 12/25/2020 at 16:35 Approved by: Hanane Nicolas M.D. on 12/25/2020 at 16:47
== END ==
PROVIDERS: PCP Family Medicine; Referring Provider Family Medicine; Visit Provider Family Medicine
DX: Z34.82 Encounter for supervision of other normal pregnancy, second trimester (principal); Z3A.20 20 weeks gestation of pregnancy
CPT/HCPCS: 76811

== ENCOUNTER → 2021-01-03 11:01 | Outpatient (CLI) | payer OTHER, SELFPAY ==
--- NOTE | 2021-01-03 | DI.US.S_ITS ---
PROCEDURE: US OB FOLLOW UP INDICATIONS: FOLLOW UP TO 20 WEEK OUTSIDE/PRIOR DATING DATA: Last menstrual period (LMP): Unknown . LMP-based estimated date of delivery (DEANGELO): 05/11/21 (IVF) First dating scan (date and location): 10/23/20 Estimated date of delivery (DEAGNELO) from first dating scan: 05/08/21 TECHNIQUE: Real-time scanning was performed of the fetus, with image documentation and biometric measurements. Endovaginal scanning: Not performed COMPARISON: [facility], OB >= 14 WEEKS FETUS, 12/25/2020, 9:40. [facility], OB <= 14 WEEKS FETUS, 10/23/2020, 15:57. FINDINGS: General: A single living intrauterine gestation is present. Presentation: Variable. Placenta: Placental position is anterior , without previa. Amniotic fluid index: 11.4 cm, normal range is 5-24 cm. heart rate: 145 beats per minute. Maternal cervical canal: 4.3 cm long. Normal lower limit is 2.5 cm. Estimated gestational age from initial scan: 22 weeks 1 day Other: Suboptimal evaluation secondary to body habitus however grossly normal appearance of the spine, four-chamber heart, outflow tracts, chest/diaphragm, three-vessel cord, urinary bladder and extremities. Ventricles and posterior fossa grossly unremarkable. The face/lips are not well seen. IMPRESSION: Single living intrauterine fetus Suboptimal evaluation as above. face/lips still not well visualized, otherwise the remaining anatomic survey completed. Recommend follow-up Possible marginal placenta previa. Recommend follow-up. Dictated by: Jeffry Olmstead M.D. on 01/03/2021 at 15:20 Approved by: Jeffry Olmstead M.D. on 01/03/2021 at 15:31
== END ==
PROVIDERS: PCP Family Medicine; Referring Provider Family Medicine; Visit Provider Family Medicine
DX: Z36.2 Encounter for other antenatal screening follow-up (principal); Z3A.22 22 weeks gestation of pregnancy
CPT/HCPCS: 76816

== ENCOUNTER → 2021-01-20 09:59 | Outpatient (CLI) | payer OTHER, SELFPAY ==
[2021-01-20 12:06] LABS: Hematocrit 37.4 % (36-46); Hemoglobin 12.7 g/dL (12.0-16.0)
[2021-01-20 13:14] LABS: GTT (PREG) 1 Hour PP 50gm Dose 129 mg/dL (76-139)
== END ==
PROVIDERS: PCP Family Medicine; Referring Provider Obstetrics & Gynecology; Visit Provider Obstetrics & Gynecology
DX: Z34.82 Encounter for supervision of other normal pregnancy, second trimester (principal); Z3A.25 25 weeks gestation of pregnancy
CPT/HCPCS: 36415; 82950; 85014; 85018; 86850

== ENCOUNTER 2021-03-28 07:41 | Observation (INO) | payer OTHER, SELFPAY ==
--- NOTE | 2021-03-28 | DI.US.S_ITS ---
PROCEDURE: US OB BIOPHYSICAL PROFILE INDICATIONS: BLEEDING. RULE OUT PLACENTAL ABRUPTION. OUTSIDE/PRIOR DATING DATA: First dating scan (date and location): October 23, 2020; [facility]. Estimated date of delivery (DEANGELO) from first dating scan: May 08, 2021. TECHNIQUE: Real-time scanning was performed of the fetus for biophysical profile, with image documentation. COMPARISON: [facility], US, US OB >= 14 WEEKS FETUS, 02/18/2021, 14:06. FINDINGS: General: A single living intrauterine gestation is present. Presentation: Vertex. Placenta: Placental position is anterior , without previa. Amniotic fluid index: 19.6 cm, normal range is 5-24 cm. Single deepest vertical pocket is 5.4 cm. heart rate: 128 beats per minute. Maternal cervical canal: 3.6 cm long. Normal lower limit is 2.5 cm. Biophysical profile: Tone: 2 points. Movement: 2 points. Respiration: 2 points. Largest pocket of fluid: 2 points. IMPRESSION: 1. Single intrauterine gestation as detailed above. 2. 09/29 biophysical profile. We strive to produce accurate, complete, and clear reports of imaging services. To assist us in improving patient care, this report was composed using standard report templates and voice recognition software. Therefore, it may contain abnormal punctuation, insertions and/or omissions. Occasional wrong-word or sound-alike substitutions may occur. Though we review the report and make efforts to correct it, we do recommend that the report be read carefully in proper context to recognize any text inaccuracies. Dictated by: Jarett Waterman M.D. on 03/28/2021 at 10:38 Approved by: Jarett Waterman M.D. on 03/28/2021 at 10:42
[2021-03-28] MEDS: LACTATED RINGERS 1,000 ML 1000 ML IV ×2 (09:20→11:26)
[2021-03-28 09:57] LABS: Appearance Urine UA CLEAR; Bilirubin Urine UA NEGATIVE (NEGATIVE); Color Urine UA YELLOW; Glucose Urine UA NEGATIVE (Negative); Ketones Urine UA NEGATIVE (NEGATIVE); Leukocyte Esterase Urine UA NEGATIVE (NEGATIVE); Nitrite Urine UA NEGATIVE (Negative); Occult Blood Urine UA 3+ (Negative); Protein Urine UA NEGATIVE (Negative); Urobilinogen Urine UA 0.2 E.U./dL (0.2)
[2021-03-28 09:59] LABS: pH Urine UA 6.5 (4.5-8.0)
[2021-03-28 10:03] LABS: Bacteria Urine None Seen; Culture Indicated Urine Cult Not Indicated; RBC Urine 5-10/HPF (0-5/HPF); WBC Urine None Seen (0-5/HPF)
--- NOTE | 2021-03-28 10:55 | PM.OBHP.IH.1 ---
OB HPI Date/Time Date of admission: 03/28/21 Date Patient Seen: 03/28/21 Time Patient Seen: 09:00 History of Present Condition Chief complaint: OBS DEANGELO Calculator Estimated Delivery Date Method Current WG Current Estimate 05/11/21 LMP (Certain) 33w 5d Other Estimates 05/08/21 Ultrasound #1 34w 1d Estimated Gestational Age (weeks): 33 : 33 Para: 5 Narrative: This patient is a 35yo @33+5 dated by FET transfer, presenting with vaginal bleeding and cramping in the setting of a closed cervix. The patient reports that this morning at 2:30 AM, she had a moderate amount of bright red bleeding in the toilet. She had brown clot on wiping at 5:30 AM, and has had intermittent cramping for a few weeks that continues today. She reports irregular contractions since this AM, but denies constant abdominal pain, UTI symptoms, fevers, chills, headache or visual changes, or any other symptoms. She has a history of two prior CS, both for breech. She had an anterior placenta previa early in the that had resolved at 28 weeks. She denies any other complications, received rhogam at 28 weeks, and denies any other contributory medical, surgical, or family history. care: good care Dating criteria OB: other (IVF) Ultrasounds: abnormal US findings (previa, resolved) Obstetrical complications: other ( vaginal bleeding) Medical complications OB: none Preadmission Labs Last OB Lab Results: Blood Type A Negative 06/14/19 09:00 06/14/19 Antibody Screen Negative 01/20/21 11:32 01/20/21 Hematocrit 37.4 % (36-46) 01/20/21 11:32 01/20/21 Hemoglobin 12.7 g/dL (12.0-16.0) 01/20/21 11:32 01/20/21 Glucose 1 Hour 129 mg/dL (76-139) 01/20/21 11:32 01/20/21 Genetic Screens: Cell-free DNA: Normal Prior (ies) Past Pregnancies Del. Date GA/Weeks Labor Lgth Wt Sex Route Outcome Anesthesia Place Delv Breastfeed Preg Comp Name 11/17/17 39 0 7 lb 6 oz Female live - full term spinal IH, Dr. Cj 3.5 mos, switched to formula. other [place] 06/14/19 39 0 7 lb 6 oz Male live - full term spinal IH 3.5 mos, switched to formula. other [place] Delivery Date: 11/17/17 Last Updated by: Christina Esquivel R.N. Scheduled C/S for Breech. Delivery Date: 06/14/19 Last Updated by: Christina Esquivel R.N. Scheduled repeat C/S, again breech position. No complications. 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 Sister Cholestasis during Social History marital status: number of children: 2 household members: spouse and children lives independently: Yes caregiver/support person: No housing: house pets and animals: No education level: college occupational status: unemployed current occupational exposures/hazards: No kayleen/congregational: Shinto special kayleen needs: No seatbelt use: always do you feel safe at home: Yes Smoking Status: Never smoker second hand exposure: No alcohol intake: former substance use type: does not use during the past year weight has: remained stable well-balanced diet: daily or most days daily servings fruits/ve-4 caffeine: Yes (1 cup coffee in am.) Type(s) of exercise: walking and normal ROM and activity frequency: does not exercise Meds Home Medications and Allergies Home Medications Medication Instructions Recorded Confirmed Type ascorbic acid (vitamin C) 500 mg mg PO DAILY 11/02/19 03/26/21 History capsule prenat.vits,cher,lne-qpnp-hqsoy 1 tab PO DAILY 11/02/19 03/26/21 History acetaminophen 325 mg capsule 650 mg PO Q4H PRN 01/10/21 03/26/21 History (Tylenol) cholecalciferol (vitamin D3) 50 50 mcg PO DAILY 01/10/21 03/26/21 History mcg (2,000 unit) capsule folic acid 400 mcg tablet 0.8 mg PO DAILY tab 01/10/21 03/26/21 History pantoprazole 40 mg tablet,delayed 40 mg PO DAILY #30 tab 03/26/21 03/26/21 Rx release (Protonix) Allergies Allergy/AdvReac Type Severity Reaction Status Date / Time oxycodone [From Percocet] AdvReac Intermediate Ringing in Verified 03/26/21 13:54 ears Review of Systems Constitutional Constitutional: Reports system reviewed and no additional complaints, except as documented Cardiovascular Cardiovascular: Reports system reviewed and no additional complaints, except as documented Respiratory Respiratory: Reports system reviewed and no additional complaints, except as documented Gastrointestinal Gastrointestinal: Reports as per HPI Genitourinary Genitourinary: Reports as per HPI and Reports abnormal vaginal bleeding Neurologic Neurologic: Reports system reviewed and no additional complaints, except as documented OB Exam GI Palpation: soft and No tender External Female Exam: Yes normal external appearance Speculum Exam - Vagina: Yes vaginal bleeding (brown clot without mucus passing through cervical os) OB/External & Speculum: vaginal bleeding (brown clot without mucus passing through cervical os) Presentation: vertex Objective Labs Labs: Laboratory Results - last 24 hr 03/28/21 09:20 Urine Color Yellow Urine Appearance Clear Urine pH 6.5 Ur Specific [place] 1.010 Urine Protein Negative Urine Glucose (UA) Negative Urine Ketones Negative Urine Occult Blood 3+ H Urine Nitrate Negative Urine Bilirubin Negative Urine Urobilinogen 0.2 Ur Leukocyte Esterase Negative Urine RBC 5-10/hpf H Urine WBC None seen Urine Bacteria None seen Ur Culture Indicated? Cult not indicated Assessment and Plan Assessment and Plan Assessment and Plan narrative: This patient is a 35yo @33+5 presenting with vaginal bleeding consistent with old clot and ongoing irregular contractions, concerning for a partial placental abruption. The patient's cervical os remains closed, her membranes are intact, and her contractions are not increasing in frequency or intensity, making labor less likely. The patient has a history of two prior sections and has an anterior placenta without previa, though no abnormal imaging findings are noted on today's ultrasound. She has no signs of UTI or other infection, no recent intercourse or trauma, and no other clear explanation for her persistent contractions and bleeding. We discussed that she should remain inpatient for monitoring, and that given her gestational age, we will try to transfer to a facility with a NICU. - Patient currently NPO - CBC, T&S, covid testing pending - s/p 1x 12mg IM betamethasone at 11:30 AM on 03/28 - LR @100ccs after 1L bolus, patient previously copiously PO hydrating prior to being made NPO - continuous
[2021-03-28] MEDS: BETAMETHASONE 30 MG/5 ML MDV 12 MG IM (11:26)
[2021-03-28 11:39] LABS: COVID19 -Nasal RAPID Negative (Negative)
== END 2021-03-28 13:05 | disposition home or self-care (01) ==
PROVIDERS: Obstetrics & Gynecology; Admitting Provider Obstetrics & Gynecology; PCP Family Medicine; Referring Provider Obstetrics & Gynecology; Visit Provider Obstetrics & Gynecology
DX: O46.93 Antepartum hemorrhage, unspecified, third trimester (principal); Z3A.33 33 weeks gestation of pregnancy; Z20.822 Contact with and (suspected) exposure to COVID-19
CPT/HCPCS: 59025; 59050; 76819; 81001; 87635; 96360; 96372; 99219; C9803; G0378; G0379; J0702

== ENCOUNTER → 2021-04-21 09:46 | Outpatient (CLI) | payer OTHER, SELFPAY ==
[2021-04-21 10:35] LABS: COVID19 -Nasal RAPID Negative (Negative)
== END ==
PROVIDERS: PCP Family Medicine; Visit Provider Obstetrics & Gynecology
DX: Z01.812 Encounter for preprocedural laboratory examination (principal); Z20.822 Contact with and (suspected) exposure to COVID-19
CPT/HCPCS: 87635

== ENCOUNTER 2021-04-21 09:52 | Outpatient (CLI) | payer OTHER, SELFPAY | END 2021-04-21 11:00 | disposition home or self-care (01) | LOC: OB 04-22 10:40 | PROVIDERS: PCP Family Medicine; Referring Provider Obstetrics & Gynecology; Visit Provider Obstetrics & Gynecology | DX: O26.893 Other specified pregnancy related conditions, third trimester (principal); R52 Pain, unspecified; Z3A.37 37 weeks gestation of pregnancy; Z20.822 Contact with and (suspected) exposure to COVID-19 | CPT/HCPCS: 59025; 87635; G0378; G0379 ==

== ENCOUNTER 2021-04-22 05:44 | Inpatient (IN) | payer OTHER, SELFPAY ==
[2021-04-22] MEDS: LACTATED RINGERS 1,000 ML 100 ML IV ×2 (07:30→08:56)
[2021-04-22] MEDS: CITRIC ACID/SODIUM CITRATE 15 ML SOLUTION 30 ML PO (07:40)
[2021-04-22 07:43] LABS: Add Manual Diff / Slide Review NO; Basophils Absolute Auto 0 /uL (0-100); Basophils Percent Auto 0.1 % (0-2); Eosinophils Absolute Auto 100 /uL (0-450); Eosinophils Percent Auto 0.6 % (2-4); Hematocrit 38.6 % (36-46); Hemoglobin 12.9 g/dL (12.0-16.0); Lymphocytes Absolute Auto 2700 /uL (1100-4500); Lymphocytes Percent Auto 21.4 % (25-40); Mean Corpuscular HGB Conc 33.5 % (30-36); Mean Corpuscular Hemoglobin 29.6 PG (26-34); Mean Corpuscular Volume 88.5 fL (80-100); Monocytes Absolute Auto 700 /uL (0-900); Monocytes Percent Auto 5.3 % (3-14); Neutrophils Absolute Auto 9300 /uL (1500-7000); Neutrophils Percent Auto 72.6 % (50-75); Platelet Count 314 X10^3/uL (150-400); Red Blood Cell Count 4.36 X10^6/uL (4.0-5.2); Red Cell Distribution Width 13.8 % (11.6-14.8); White Blood Cell Count 12.8 X10^3/uL (4.5-11.0)
--- NOTE | 2021-04-22 08:07 | PM.HP.1 ---
History of Present Illness History of Present Illness Date Patient Seen: 04/22/21 Time Patient Seen: 08:08 Chief complaint: C Section Narrative: Patient is a 35-year-old 3 para 2 at 37 weeks gestation with 2 prior sections. She had a big bleed at 34 weeks gestation and was sent to the [facility]. Maternal- Medicine recommended delivery at 37 weeks due to that bleed. Patient History Medical History Abnormal Pap smear of cervix (~2009) Chicken pox (~1991) resulting from assisted reproductive technology (~2020) Symptomatic cholelithiasis (~10/2019) Surgical History Amputation of right middle finger (1990) Amputation of right ring finger (1990) Anesthesia History of 2 sections History of arthroscopy of both knees (2004) History of arthroscopy of both knees (2005) History of arthroscopy of both knees (2014) Status post cholecystectomy (~11/2019) Family & Social History Family History Grandmother Gallstones Breast cancer Father Deaf Grandfather Leukemia Grandfather History of heart disease Smoker Mother History of Holter monitoring Grandmother No problems noted. Sister Cholestasis during Social History: household members spouse,children lives independently Yes caregiver/support person No Tobacco & Substance use: Smoking Status Never smoker alcohol intake former alcohol intake frequency a few times a month Substance Use Type does not use Meds Home Medications and Allergies Home Medications Medication Instructions Recorded Confirmed Type ascorbic acid (vitamin C) 500 mg mg PO DAILY 11/02/19 04/10/21 History capsule prenat.vits,cher,tyw-lfvm-oucvt 1 tab PO DAILY 11/02/19 04/10/21 History acetaminophen 325 mg capsule 650 mg PO Q4H PRN 01/10/21 04/10/21 History (Tylenol) cholecalciferol (vitamin D3) 50 50 mcg PO DAILY 01/10/21 04/10/21 History mcg (2,000 unit) capsule folic acid 400 mcg tablet 0.8 mg PO DAILY tab 01/10/21 04/10/21 History pantoprazole 40 mg tablet,delayed 40 mg PO DAILY #30 tab 03/26/21 04/10/21 Rx release (Protonix) nifedipine 10 mg capsule 10 mg PO BID #10 cap 04/10/21 04/10/21 Rx Allergies Allergy/AdvReac Type Severity Reaction Status Date / Time oxycodone [From Percocet] AdvReac Intermediate Ringing in Verified 04/18/21 10:54 ears Exam Narrative Exam Narrative: HEENT: No thyromegaly, no anterior cervical or supraclavicular lymphadenopathy. Lungs:Clear to auscultation bilaterally, no wheezes. Cardiovascular: Regular rate and rhythm, no murmurs, rubs, or gallops. Abdomen: Keloid Pfannenstiel scar and keloid mole removal scar. No hepatosplenomegaly. No masses palpable. Fundal height: 38 cm Estimated weight: 7 lbs Extremities: Trace edema Objective Labs Result Diagrams: 04/22/21 07:22 Labs: Laboratory Results - last 24 hr 04/22/21 07:22 WBC 12.8 H RBC 4.36 Hgb 12.9 Hct 38.6 MCV 88.5 MCH 29.6 MCHC 33.5 RDW 13.8 Plt Count 314 Neut % (Auto) 72.6 Lymph % (Auto) 21.4 L Smith % (Auto) 5.3 Eos % (Auto) 0.6 L Baso % (Auto) 0.1 Neut # (Auto) 9300 H Lymph # (Auto) 2700 Smith # (Auto) 700 Eos # (Auto) 100 Baso # (Auto) 0 Assessment & Plan Assessment & Plan narrative: Assessment: 35-year-old 3 para 2 with 2 prior sections Thirty-seven weeks gestation Status post big bleed at 34 weeks Maternal Medicine recommended delivery at 37 weeks Keloid scars Plan: Repeat low-transverse section and excision of keloid scars The risks, benefits, and alternatives to the procedure were explained to the patient. The risks including bleeding, infection, injury to the bowel, bladder, or ureters. She understands these risks and agrees to proceed. A full par Q was held and consent form was signed. COVID-19 COVID-19 status: Negative Result date/Date tested (Pos, Neg/Pending): 04/21/21 Time Spent With Patient Time with patient: less than 30 minutes Critical Care time: I spent a total of [] minutes of critical care time on this patient's care today; this time is exclusive of procedural time.
--- NOTE | 2021-04-22 08:11 | PM.PREOP ---
Pre-operative Note COVID-19 COVID-19 status: Negative Result date/Date tested (Pos, Neg/Pending): 04/21/21 Criteria for continued procedure: Delay expected to result in less-positive ultimate med/surg outcome and Non-surgical alternatives not available or appropriate per current SOC Interval Note History & Physical reviewed/Exam performed by Physician: Yes Changes to H&P: No H&P completed within 30 days and has changed as indicated here:: 04/22/21
[2021-04-22] MEDS: CEFAZOLIN 2 GM/20 ML SYRINGE IV (08:30)
--- NOTE | 2021-04-22 09:18 | SUR.OPER ---
Viable baby boy delivered at 0908. Intact placenta delivered and cord blood tubes sent with baby to L&D
[2021-04-22] MEDS: TRIAMCINOLONE 40 MG/ML VIAL IM (09:49)
[2021-04-22] MEDS: BUPIVACAINE 0.25% (PF) VIAL 30 ML INJ (10:07)
[2021-04-22 10:26] VITALS: BP 116/74; PULSE 73; RESP 15; TEMP 36.1; O2SAT 98
[2021-04-22 10:31] VITALS: BP 109/67; PULSE 74; RESP 72; O2SAT 98
[2021-04-22 10:36] VITALS: BP 102/60; PULSE 72; RESP 16; TEMP 36; O2SAT 99
--- NOTE | 2021-04-22 10:42 | PM.OBCS.1 ---
Operative Date/Time/Diagnoses Date of procedure: 04/22/21 Time of procedure: 10:42 Pre-op diagnosis: 37 weeks gestation Third trimester bleed 2 prior sections Keloid scar Post-op diagnosis: same Procedure & Clinicians Procedure: Repeat low-transverse section Excision of keloid scars Same procedure as scheduled: Yes Indications: 37 weeks gestation 2 prior sections Keloid scar Third trimester bleed Surgeon: Brinda Bolton Yes if Unassisted: No Test Administrator: Johanna Cool Reason for Test Administrator: The client services assistant was necessary to retract upon entry into the abdomen and uterus. There was extensive scarring around the fascia and peritoneal layer. The client services assistant helped with delivery of the baby. Upon closure the client services assistant retracted and clips suture. She closed the contralateral fascia. Anesthesia Type: Spinal (with Duramorph) and Local Operative Notes Findings: Live male Keloid of the Pfannenstiel scar as well as a mole removal scar Significant adhesions around the fascia, muscles, peritoneum, and bladder Normal tubes and ovaries Very thick uterine wall at the incision Closure Type: primary Specimen(s): cord blood, placenta and other (Keloid scar) Intraoperative meds administered: Duramorph, Ketorolac and Pitocin Applied: Catheter (to continuous drainage) Estimated Blood Loss (mL): 650 Blood products transfused: none Procedure in detail: The patient was taken to the operating room where she was placed in the seated position. Spinal anesthesia with Duramorph was administered. The patient was then placed in the dorsal supine position with a leftward tilt. She was prepped and draped in the usual sterile fashion. A timeout was performed. After spinal analgesia was found to be adequate, the previous Pfannenstiel incision was excised and the incision was carried through to the underlying layer fascia. The fascia was nicked in the midline, and the incision extended bilaterally with the Alegria scissors. There was extensive adhesions in fascial layer. The superior aspect of the fascial incision was grasped with a Molly clamps, elevated, and the underlying rectus muscles dissected off sharply and bluntly. Attention was then turned to the inferior aspect of this incision which in a similar fashion was grasped with a Felton clamps, elevated, and the underlying rectus muscles dissected off sharply and bluntly. The rectus muscles were in the midline. The peritoneum was identified, grasped between 2 hemostats, and entered sharply with the Metzenbaum scissors. This incision was extended superiorly and inferiorly with good visualization of the bladder. There was blunt extension of the peritoneal incision as well. Several adhesions of abdominal wall had to be taken down with the Bovie in order to make enough room for visualization. The bladder blade was inserted. The vesicouterine peritoneum was identified, grasped with the pickup, and entered sharply with the Metzenbaum scissors. This incision was extended bilaterally, and the bladder flap was created digitally. The bladder blade was reinserted. The lower uterine segment was incised in a transverse fashion with the scalpel. Upon entering the amniotic sac there was moderate amount of clear amniotic fluid. The 's head was delivered without difficulty. The nose and mouth were suctioned with bulb suction. The remainder of the body delivered without difficulty. The cord was double clamped and cut after one minute. The was handed off to waiting RN and RT. The placenta was delivered manually. The uterus was cleared of all clots and debris. The uterine incision was repaired with #1 chromic in a running interlocking fashion, and a second layer the same suture was used for an imbricating layer. There were 2 areas of the uterine incision that were still bleeding and [id number] sutures with 2-0 Vicryl were placed for hemostasis. The tubes and ovaries were examined and were found to be normal. The gutters were cleared of all clots and debris. The bladder flap was reapproximated using 2-0 Vicryl in a running fashion. The parietal peritoneum was closed using 2-0 Vicryl in a running fashion. The fascia was reapproximated using 0 Vicryl in a running fashion. The subcutaneous layer was copiously irrigated with warm normal saline. 7 simple interrupted sutures of 3-0 Vicryl were placed to reapproximate the subcutaneous layer. The skin was closed with 4-0 Monocryl in a subcuticular fashion. Steri-Strips were placed. An Aquacell dressing was placed. The uterus was expressed of a small amount of old blood. The upper abdomen keloid incision was excised in an elliptical fashion with a 10. Blade. The ellipse measured 2 cm x 1 cm. The Bovie was used for hemostasis. Four simple interrupted sutures with 4-0 Monocryl were placed for hemostasis. Sponge, lap, and instrument counts were correct x-2. The patient tolerated the procedure well, and was taken to PACU in stable condition. Complications: none [place] Baby 1: Infant Gender: Male Presentation: vertex Position: Left Occiput Transverse Placental Delivery Description: Expressed Cord Vessel Description: 3 Vessels and Clamped/Cut (after 1 minute) score (1 min): 9 score (5 min): 9 weight: 6 lb 15 oz Post-operative Condition: stable Disposition: PACU Aftercare: routine postop
[2021-04-22 11:02] VITALS: BP 115/67; PULSE 76; RESP 15; TEMP 36.1; O2SAT 98
[2021-04-22] MEDS: ACETAMINOPHEN 325 MG TABLET 650 MG PO ×2 (13:36→20:37)
[2021-04-22 13:53] VITALS: BP 122/61
[2021-04-22] MEDS: KETOROLAC 30 MG/ML VIAL IV ×2 (15:02→20:38)
[2021-04-23] MEDS: ACETAMINOPHEN 325 MG TABLET 650 MG PO ×5 (01:35→19:54)
[2021-04-23] MEDS: KETOROLAC 30 MG/ML VIAL IV ×2 (01:36→02:12)
[2021-04-23 06:36] LABS: Hematocrit 31.6 % (36-46); Hemoglobin 10.6 g/dL (12.0-16.0)
[2021-04-23] MEDS: IBUPROFEN 600 MG TABLET PO ×3 (07:55→19:54)
[2021-04-24] MEDS: ACETAMINOPHEN 325 MG TABLET 650 MG PO (01:51)
[2021-04-24] MEDS: IBUPROFEN 600 MG TABLET PO (01:54)
--- NOTE | 2021-04-24 09:27 | P.PNOB_ITS ---
Subjective - OB Subjective Patient comments: no complaints, pain well controlled, tolerating diet and other (Voided without the catheter) baby status: doing well and nursing well [place] feeding status: exclusively breast feeding Date Patient Seen: 04/22/21 Time Patient Seen: 12:45 Interval history: Patient is a 35-year-old 3 para 3 postop day # 1 status post repeat low-transverse section and excision of keloid scars. is going well. Pain is well controlled. She is tolerating a diet. She has been able to void without the catheter. She is ambulating without assistance. Exam Vital Signs (past 8 hours): Oxygen Delivery Method Room Air Narrative Exam Narrative: Generally: Patient is sitting up in bed, no acute distress Lungs: Clear to auscultation bilaterally Cardiovascular: Regular rate and rhythm Fundus: Firm at U Incision: Clean dry and intact with Aquacel dressing Extremities: 1+ edema, negative Homans Objective Labs Result Diagrams: 04/23/21 06:25 Assessment & Plan Plan day: 1 plan OB: routine postop care Time Spent With Patient Time: Total time spent is greater than 50% in coordination of care (as documented) at patient's floor/unit and/or counseling patient: Time with patient: 15-24 minutes
--- NOTE | 2021-04-24 09:28 | PM.OBDS.1 ---
Discharge Providers Provider Date of admission: 04/22/21 05:44 Discharge Date: 04/24/21 Primary care physician: Johanna Cool MD Consults: 04/22/21 11:14 Consult to Finished Metal Repairer Routine Comment: Discharge provider: Brinda Rich MD Summary Hospital Course Date Patient Seen: 04/24/21 Time Patient Seen: 09:28 Diagnoses: 37 weeks gestation Third trimester bleed Two prior sections Significant fascial and intra-abdominal adhesions Keloid of the incisions Hospital Course: Patient is a 35-year-old 3 para 3 who presented on April 22, 2021 for a scheduled repeat low-transverse section at 37 weeks gestation due to a significant bleed at 34 weeks gestation. She had had 2 prior sections. She underwent this procedure with complications of fascial and intra-abdominal adhesions. Her course was unremarkable and she is discharged home on postop day # 2. She is tolerating a diet. Pain is well controlled. going well. She is ambulating without assistance. Peripartum Data Delivery Method: Section (Repeat with keloid scar excision) Procedures: Repeat low-transverse section Significant lysis of adhesions Spinal anesthesia complications: none 1: Gender: Male Disposition of : home Status at Discharge Cognitive/behavioral status at discharge: oriented Functional status at discharge: independent ambulation Overall status at discharge: patient is progressing back to baseline Time Spent with Patient Time attestation: Total time spent providing and/or coordinating discharge services: Time spent: Less than 30 minutes Objective Labs Result Diagrams: 04/23/21 06:25 Exam Vital Signs (past 8 hours): Oxygen Delivery Method Room Air Narrative Exam Narrative: Generally: Patient is sitting up in bed, holding infant, no acute distress Lungs: Clear to auscultation bilaterally Cardiovascular: Regular rate and rhythm Fundus: Firm at U-1 Incision: Clean dry and intact with Aquacel dressing, upper abdominal wound covered with Allevyn dressing Extremities: 1+ edema, negative Homans Discharge Plan Discharge Plan Patient Disposition: Home Provider Discharge Comment: Call with fever, chills, redness or drainage around the incisions, or bleeding vaginally more than a pad in an hour Ibuprofen 600 mg every 6 hours as needed Tylenol 650 mg every 6 hours as needed Discharge orders & Medications Prescriptions: Continued folic acid 400 mcg tablet 0.8 mg PO DAILY 0RF cholecalciferol (vitamin D3) 50 mcg (2,000 unit) capsule 50 mcg PO DAILY 0RF acetaminophen [Tylenol] 325 mg capsule 650 mg PO Q4H PRN (Reason: Pain, Moderate) 0RF prenat.vits,cher,aqe-ahxm-wwczw Tablet 1 tab PO DAILY 0RF ascorbic acid (vitamin C) 500 mg capsule 500 mg PO DAILY 0RF Discontinued pantoprazole [Protonix] 40 mg tablet,delayed release (DR/EC) 40 mg PO DAILY Qty: 30 2RF nifedipine 10 mg capsule 10 mg PO BID Qty: 10 0RF Rx Instructions: Take one capsule at onset of contractions, repeat in 20min if contractions continue Follow up/Referrals: Brinda Rich MD [Physician] - 04/29/21 (Aquacel dressing removal and possible stitch removal with Dr. Rich on 04/29/2021 @ 3:30 p.m.) Diet/Activity/Treatments Diet: Regular Activity: No heavy lifting Skin/Wound/Dressing Care Report to your healthcare provider any signs of infection, such as:: chills, fever, increased pain, unusual drainage and unusual redness Dressing: Remove upper pink dressing with attached gauze tomorrow after a morning shower Leave lower brown dressing in place until next Wednesday when it will be removed at the visit Visit Report/Discharge Packet Instructions: DI for , DI for Prescription Opioid Use Discharge Data Primary Care Provider: Johanna Cool
[2021-04-24] MEDS: RHO(D) IMMUNE GLOBULIN 1,500 UNIT SYRINGE 1500 UNIT IM (09:32)
[2021-04-24 09:54] VITALS: BP 111/74; PULSE 93; RESP 16; TEMP 36.9
== END 2021-04-24 10:50 | disposition home or self-care (01) | DRG 788 ==
PROVIDERS: Admitting Provider Obstetrics & Gynecology; PCP Family Medicine; Referring Provider Obstetrics & Gynecology; Visit Provider Obstetrics & Gynecology
PROC: 10D00Z1 Extraction of Products of Conception, Low, Open Approach (ICD-10-PCS; CPT 59514; principal; 2021-04-22 07:45)
DX: O34.211 Maternal care for low transverse scar from previous cesarean delivery (principal); Z3A.37 37 weeks gestation of pregnancy; Z37.0 Single live birth; O99.891 Other specified diseases and conditions complicating pregnancy; L91.0 Hypertrophic scar; O46.93 Antepartum hemorrhage, unspecified, third trimester
CPT/HCPCS: 36415; 59050; 59515; 85014; 85018; 85025; 85461; 86850; 86900; 86901; J0690; J1100; J1885; J2274; J2590; J2790

== ENCOUNTER → 2022-05-16 09:23 | Outpatient (CLI) | payer OTHER, SELFPAY ==
[2022-05-16 10:13] LABS: Influenza A - CEPHEID Flu A NEGATIVE (NEGATIVE); Influenza B - CEPHEID Flu B NEGATIVE (NEGATIVE); Respiratory Syncytial Virus Negative (Negative)
[2022-05-16 10:15] LABS: COVID-19 CEPHEID 4-PLEX PCR Negative (Negative)
== END ==
PROVIDERS: PCP Family Medicine; Visit Provider Nurse Practitioner Family
DX: J06.9 Acute upper respiratory infection, unspecified (principal); Z20.822 Contact with and (suspected) exposure to COVID-19
CPT/HCPCS: 0241U

== ENCOUNTER → 2022-08-14 13:55 | Outpatient (CLI) | payer OTHER, SELFPAY ==
--- NOTE | 2022-08-14 | DI.US.S_ITS ---
PROCEDURE: US PELVIC COMPLETE INDICATIONS: ABNORMAL UTERINE AND VAGINAL BLEEDING, UNSPECIFIED TECHNIQUE: Real-time scanning was performed of the pelvic organs, with image documentation. Additional endovaginal scanning was necessary due to incomplete visualization of the adnexal and endometrial structures by transabdominal scanning. COMPARISON: None. FINDINGS: Uterus: 9.8 x 5.1 x 5.7 cm. Anteverted positioning. Endometrium measures 14 mm, at the upper limit of normal. Overall mildly heterogeneous echotexture. Ovaries: Not well seen. Other: Possible cluster of cysts in the cervix, measuring in aggregate 2.1 x 1.2 cm. There may also be calcifications. IMPRESSION: Cluster of nabothian cysts in the cervix. A small cystic neoplasm (adenoma malignum) is much less common consideration. Consider follow-up with imaging or direct visualization if there is sufficient clinical concern. Endometrium measures 14 mm, at the upper limit of normal. No discrete mass. Ovaries were not well seen. Dictated by: Michael Lubin M.D. on 08/14/2022 at 16:19 Approved by: Michael Lubin M.D. on 08/14/2022 at 16:24
== END ==
PROVIDERS: PCP Family Medicine; Referring Provider Family Medicine; Visit Provider Family Medicine
DX: N93.9 Abnormal uterine and vaginal bleeding, unspecified (principal); N88.8 Other specified noninflammatory disorders of cervix uteri
CPT/HCPCS: 76830; 76856

== ENCOUNTER 2022-10-01 07:29 | Day surgery (SDC) | payer OTHER, SELFPAY ==
[2022-09-25 08:19] VITALS: BMI 37.5
--- NOTE | 2022-10-01 | PATH_ITS ---
[facility] Accession Number: [id number] No. of containers..01 Tissue . 01 Material submitted: . endometrium - ENDOMERTIAL CURETTINGS . 01 Diagnosis: A. Endometrium, Curettage: Inadequate specimen. See comment. . . COMMENT: This specimen is extremely scant. Only a strip of benign-appearing glandular epithelium is present. This specimen is considered inadequate for the evaluation for endometrial neoplasia. Deeper levels were examined. MRV 10/15/2022 1626 Local . 01 Electronically signed: . Lindsey Mitchell MD, Pathologist NPI- [id number] . 01 Gross description: . ENDOMERTIAL CURETTINGS: Received in formalin are minute fragments of mucoid and hemorrhagic material measuring 0.1 x 0.1 x 0.1 cm in aggregate. Submitted in toto in 1 cassette. /GEORGINA 10/07/20228 Local . 01 Pathologist provided ICD-10: N92.0 . 01 CPT . 892224 Specimen Comment: A courtesy copy of this report has been sent to [phone] Performed at: 01 [facility] [address] [place] [address], [place], [place] [id number] MD Jerardo Loco MD Phone: [phone]
[2022-10-01 08:02] VITALS: BP 126/86; PULSE 87; RESP 18; TEMP 36.6; O2SAT 98; BMI 37.2
[2022-10-01] MEDS: LACTATED RINGERS 1,000 ML 100 ML IV (08:17)
[2022-10-01] MEDS: ACETAMINOPHEN 325 MG TABLET 975 MG PO (08:52)
[2022-10-01] MEDS: LACTATED RINGERS 1,000 ML 42 ML IV (08:53)
--- NOTE | 2022-10-01 09:12 | P.HPOB_ITS ---
History of Present Illness History of Present Illness Reason for admission: vaginal bleeding Narrative: Dolly Karimi is a 36 year old female 3 para 3 who presents for a D&C hysteroscopy with NovaSure endometrial ablation due to menorrhagia. [facility] Medical History Abnormal Pap smear of cervix (~2009) Chicken pox (~1991) resulting from assisted reproductive technology (~2020) Symptomatic cholelithiasis (~10/2019) Surgical History Amputation of right middle finger (1990) Amputation of right ring finger (1990) Anesthesia History of 2 sections History of arthroscopy of both knees (2004) History of arthroscopy of both knees (2005) History of arthroscopy of both knees (2014) Status post cholecystectomy (~11/2019) Family History Grandmother Gallstones Breast cancer Father Deaf Grandfather Leukemia Grandfather History of heart disease Smoker Mother History of Holter monitoring Grandmother No problems noted. Sister Cholestasis during Social History marital status: number of children: 2 household members: spouse and children lives independently: Yes caregiver/support person: No housing: house pets and animals: No education level: college occupational status: unemployed current occupational exposures/hazards: No kayleen/congregational: Anabaptism special kayleen needs: No seatbelt use: always do you feel safe at home: Yes Smoking Status: Never smoker second hand exposure: No alcohol intake: current substance use type: does not use during the past year weight has: remained stable well-balanced diet: daily or most days daily servings fruits/ve-4 caffeine: Yes (1 cup coffee in am.) Type(s) of exercise: walking and normal ROM and activity frequency: does not exercise Meds Home Medications and Allergies Home Medications Medication Instructions Recorded Confirmed Type ibuprofen 800 mg tablet 800 mg PO PRN PRN Pain (Scale 10/01/22 10/01/22 History Score 1-3) loratadine 10 mg capsule 10 mg PO PRN PRN Congestion 10/01/22 10/01/22 History multivitamin 1 tab PO DAILY 10/01/22 10/01/22 History Allergies Allergy/AdvReac Type Severity Reaction Status Date / Time oxycodone [From Percocet] AdvReac Intermediate Ringing in Verified 10/01/22 07:50 ears Exam Vital Signs (past 8 hours): - 10/01/22 08:02 Temperature 97.9 F Pulse Rate 87 Respiratory Rate 18 Blood Pressure 126/86 Pulse Oximetry 98 Oxygen Delivery Method Room Air Oxygen Delivery Method Room Air Narrative Exam Narrative: HEENT: No thyromegaly, no anterior cervical or supraclavicular lymphadenopathy. Lungs:Clear to auscultation bilaterally, no wheezes. Cardiovascular: Regular rate and rhythm, no murmurs, rubs, or gallops. Abdomen: Well-healed Pfannenstiel scars. No hepatosplenomegaly. No masses palpable. External genitalia: Normal Vagina: Normal Cervix: Normal Bimanual exam: 9 Week size uterus. Mobile. Extremities: No edema Assessment & Plan Assessment & Plan narrative: Assessment: 36-year-old 3 para 3 with menorrhagia Plan: D&C hysteroscopy with NovaSure endometrial ablation The risks, benefits, and alternatives to the procedure were explained to the patient. The risks including bleeding, infection, and uterine perforation. She understands these risks and agrees to proceed. A full par Q was held and consent form was signed. Time Spent With Patient Time with patient: less than 30 minutes
--- NOTE | 2022-10-01 09:14 | PM.PREOP ---
Pre-operative Note COVID-19 Criteria for continued procedure: Non-surgical alternatives not available or appropriate per current SOC Interval Note History & Physical reviewed/Exam performed by Physician: Yes Changes to H&P: No H&P completed within 30 days and has changed as indicated here:: 10/01/22
--- NOTE | 2022-10-01 09:37 | SUR.OPER ---
Lithotomy on padded OR bed, head on pillow, arms secured on padded arm boards at <90 degrees abduction. Legs secured in padded yellow fins stirrups.
[2022-10-01 09:54] VITALS: BP 120/69; PULSE 77; RESP 12; TEMP 36.1; O2SAT 100
[2022-10-01 09:59] VITALS: BP 128/79; PULSE 91; RESP 13; O2SAT 98
--- NOTE | 2022-10-01 10:05 | PM.GYNOP.1 ---
Operative Date/Time/Diagnoses Date of procedure: 10/01/22 Time of procedure: 10:05 Pre-op diagnosis: menorrhagia Post-op diagnosis: same Procedure & Clinicians Procedure: Procedures Operation Date: 10/01/22 09:00 Actual Procedure Side Surgeon p D&C Hysteroscopy w/ Novasure Ablation Brinda Rich MD Indications: Menorrhagia Surgeon: Brinda Rich Anesthesia Type: General (LMA) Operative Notes Findings: 8 week size anteverted uterus Both fallopian tube ostia observed No polyps or fibroids Length of the uterus 5.5 cm from internal os to fundus, with 3.7 cm, power 112 w, time 1 minutes 24 seconds Specimen(s): endometrial curettings Estimated blood loss (mL): 5 Blood products transfused: none Procedure in detail: After informed consent was obtained, the patient was taken to the operating room where she was placed in the dorsal supine position. After adequate LMA general anesthesia was achieved, she was placed in the dorsal lithotomy position, and prepped and draped in the usual sterile fashion. A time-out was performed. A bivalve speculum was placed into the vagina and the anterior lip of the cervix was grasped with a single-tooth tenaculum. The cervical os was sequentially dilated to the # 9 Hegar dilator. The hysteroscope passed easily into the endometrial cavity. Both fallopian tube ostia were observed. There were no polyps or fibroids visualized. The hysteroscope was removed. Sharp curettage was performed yielding moderate amount of endometrial curettings. The uterus was measured from the internal os to the fundus and measured 5.5 cm. This was set on the NovaSure catheter and the generator. The NovaSure catheter passed easily into the endometrial cavity and was opened. The width of the uterus was 3.7 cm. This was set on the generator. This indicated a power of 112 w The cervix was capped, the cavity assessment was performed and passed. The cycle was initiated and lasted 1 minute and 24 seconds. At the completion of the cycle the NovaSure catheter was closed, the cervix was uncapped, and the catheter was removed from the uterus. The single-tooth tenaculum was removed from the anterior lip of the cervix. The bivalve speculum was removed from the vagina. Sponge, lap, and instrument counts were correct x2. The patient tolerated the procedure well, and was taken to PACU in stable condition. Complications: none Post-operative Condition: stable Disposition: PACU Plan for aftercare: Home after recovery
[2022-10-01 10:07] VITALS: BP 131/85; PULSE 71; RESP 13; O2SAT 99
== END 2022-10-01 10:28 | disposition home or self-care (01) ==
PROVIDERS: PCP Family Medicine; Visit Provider Obstetrics & Gynecology
PROC: 0U5B8ZZ Destruction of Endometrium, Via Natural or Artificial Opening Endoscopic (ICD-10-PCS; CPT 58563; principal; 2022-10-01 09:00)
DX: N92.0 Excessive and frequent menstruation with regular cycle (principal)
CPT/HCPCS: 58563; 81025; J1100; J1885; J2405; J2704; J3010

== ENCOUNTER → 2023-12-03 13:59 | Outpatient (CLI) | payer OTHER, SELFPAY ==
--- NOTE | 2023-12-03 14:00 | DI.US.S_ITS ---
ULTRASOUND OF RIGHT AXILLA: 12/03/2023 CLINICAL: Palpable right axilla lump. No prior exams were available for comparison. Color flow and real-time ultrasound of the right axilla were performed. Correa scale images of the real-time examination were reviewed. There is a benign 3.3 cm x 2.5 cm x 0.9 cm oval lipoma with a circumscribed margin in the right axillary tail. This oval lipoma is isoechoic. This correlates as palpated. IMPRESSION: BENIGN There is no sonographic evidence of malignancy. The 3.3 cm oval lipoma at the right axilla is benign. Mammogram could be considered for further evaluation. Exam findings were conveyed to the patient. Patient is advised to monitor for significant change. Clinical follow-up as needed. A 3 year screening mammogram is recommended. This exam was interpreted at Station ID: [id number]. Electronically Signed By: Carroll Magallanes M.D. [facility] – [place]/:12/03/2023 15:06:20 letter sent: Normal Exam ACR BI-RADS Category 2: Benign
== END ==
PROVIDERS: PCP Family Medicine; Referring Provider Family Medicine; Visit Provider Family Medicine
DX: D17.21 Benign lipomatous neoplasm of skin and subcutaneous tissue of right arm (principal); R22.31 Localized swelling, mass and lump, right upper limb
CPT/HCPCS: 76882